=== PATIENT | female | born 1950 | race Caucasian/White ===

== ENCOUNTER → 2018-06-26 | Outpatient (CLI) | payer OTHER | LOC: M.RAD 12:25 | DX: M76.62 Achilles tendinitis, left leg (principal) ==

== ENCOUNTER → 2018-07-02 | Outpatient (CLI) | payer OTHER | LOC: M.ULTRA 15:46 → M.RAD 15:46 | DX: M79.89 Other specified soft tissue disorders (principal); M79.662 Pain in left lower leg; M79.672 Pain in left foot; M25.571 Pain in right ankle and joints of right foot; R60.0 Localized edema ==

== ENCOUNTER → 2018-10-01 | Outpatient (CLI) | payer OTHER | LOC: M.ULTRA 10:17 | DX: M79.89 Other specified soft tissue disorders (principal); M79.662 Pain in left lower leg; R25.2 Cramp and spasm ==

== ENCOUNTER → 2018-11-20 | Outpatient (CLI) | payer OTHER | LOC: M.RAD 14:25 | DX: M47.894 Other spondylosis, thoracic region (principal); J44.1 Chronic obstructive pulmonary disease with (acute) exacerbation ==

== ENCOUNTER → 2019-12-21 | Outpatient (CLI) | payer OTHER | LOC: M.RAD 15:31 | DX: R05 Cough (principal) ==